=== PATIENT | male | born 1955 | race Caucasian/White ===

== ENCOUNTER 2018-10-25 11:44 | Inpatient (IN) | payer MEDICARE, MEDICAID ==
[~2018-10-25] VITALS: Ht 180.3 cm; Wt 107.0 kg
[~2018-10-25 11:44] MED LIST: AMLO10TA80 PO; BENA40TA9 PO; CALC0.5C10 PO; CLON0.2T PO; DILT240C52 PO; DOXA1TAB PO; FERR220S12 PO; FURO40TA5 PO; HYDR-4135 PO; SEVE0.8P3 PO; [UNRECOGNIZED DRUG - CODE] MC
[2018-10-25] MEDS ORDERED: FUROSEMIDE 40MG/4ML VIAL IV ONE (12:30)
[2018-10-25 13:00] LABS: BASOPHILS % 0.5 % (0.0-2.0); EOSINOPHILS % 3.1 % (0.0-5.0); HEMATOCRIT. 27.4 % (42.0-52.0); HEMOGLOBIN. 9.1 g/dL (14.0-18.0); LYMPHOCYTES % 8.9 % (20.0-50.0); MEAN CORPUSCULAR HEMOGLOBIN 30.8 pg (28.0-32.0); MEAN CORPUSCULAR VOLUME 92.5 fL (80.0-94.0); MEAN PLATELET VOLUME 9.1 fl (7.4-10.4); MONOCYTES % 4.1 % (2.0-8.0); NEUTROPHILS % 83.4 % (40.0-76.0); PLATELET 134 x1000/uL (130-400); RED BLOOD CELL COUNT 2.97 mill/uL (4.7-6.1); RED CELL DISTRIBUTION WIDTH 14.4 % (11.6-14.6)
[2018-10-25 13:09] LABS: CHLORIDE 117 mEq/L (98-107)
[2018-10-25 16:00] VITALS: BP 133/60
[2018-10-25 16:38] VITALS: BP 133/60
[2018-10-25] MEDS ORDERED: IPRATROPIUM/ALBUTEROL 0.5-3(2.5)MG/3ML NEB HHN PRN (17:30)
[2018-10-25] MEDS ORDERED: HYDRALAZINE 20MG/ML VIAL IV PRN (17:30)
[2018-10-25] MEDS ORDERED: ONDANSETRON HCL 4MG/2ML INJ IV PRN (17:30)
[2018-10-25] MEDS ORDERED: ACETAMINOPHEN 325MG TABLET PO PRN (17:30)
[2018-10-25 20:00] VITALS: BP 131/54
[2018-10-25] MEDS ORDERED: FERR325T6 MT (20:08)
[2018-10-25] MEDS ORDERED: SEVE800T8 PO (20:08)
[2018-10-25] MEDS ORDERED: DOXA1TAB2 MT (20:08)
[2018-10-25] MEDS ORDERED: AMLO-337 PO (20:08)
[2018-10-25] MEDS ORDERED: BENA40TA9 PO (20:08)
[2018-10-25] MEDS ORDERED: HYDR-4135 MT (20:08)
[2018-10-25] MEDS ORDERED: CALC0.5C10 PO (20:08)
[2018-10-25] MEDS ORDERED: FURO40TA5 MT (20:08)
[2018-10-25] MEDS ORDERED: [UNRECOGNIZED DRUG - CODE] MC (20:08)
[2018-10-25] MEDS ORDERED: SODI15OR PO (20:08)
[2018-10-25] MEDS ORDERED: CLON0.2T MT (20:08)
[2018-10-25] MEDS ORDERED: DILT-2 MT (20:08)
[2018-10-25] MEDS ORDERED: DOCU100T MT (20:08)
[2018-10-25] MEDS ORDERED: DOXA2TAB2 PO (20:08)
[2018-10-25] MEDS: DOCUSATE SODIUM 100MG CAPSULE PO SCH (21:58)
[2018-10-25] MEDS: HYDRALAZINE HCL 50MG TABLET PO SCH (21:58)
[2018-10-25] MEDS: DOXAZOSIN MESYLATE 2MG TABLET PO SCH (21:59)
[2018-10-26] VITALS (7 sets, daily range): BP systolic 121–160; BP diastolic 56–78
[2018-10-26] MEDS: HYDRALAZINE HCL 50MG TABLET PO SCH ×3 (05:26→20:56)
[2018-10-26 07:24] LABS: BASOPHILS % 1.5 % (0.0-2.0); EOSINOPHILS % 3.9 % (0.0-5.0); HEMATOCRIT. 25.3 % (42.0-52.0); HEMOGLOBIN. 8.4 g/dL (14.0-18.0); LYMPHOCYTES % 9.2 % (20.0-50.0); MEAN CORPUSCULAR HEMOGLOBIN 31.1 pg (28.0-32.0); MEAN CORPUSCULAR VOLUME 93.8 fL (80.0-94.0); MEAN PLATELET VOLUME 9.5 fl (7.4-10.4); MONOCYTES % 5.9 % (2.0-8.0); NEUTROPHILS % 79.5 % (40.0-76.0); PLATELET 113 x1000/uL (130-400); RED CELL DISTRIBUTION WIDTH 14.5 % (11.6-14.6)
[2018-10-26] MEDS: AMLODIPINE 10MG TABLET PO SCH ×2 (09:00→20:53)
[2018-10-26] MEDS: BENAZEPRIL 10MG TABLET PO SCH ×2 (09:00→20:53)
[2018-10-26] MEDS: DOXAZOSIN MESYLATE 2MG TABLET PO SCH ×2 (09:00→20:53)
[2018-10-26] MEDS: FUROSEMIDE 40MG TABLET PO SCH ×3 (10:17→18:28)
[2018-10-26] MEDS: FERROUS SULFATE 325MG TABLET PO SCH ×3 (10:17→18:28)
[2018-10-26] MEDS: DOCUSATE SODIUM 100MG CAPSULE PO SCH ×2 (10:17→20:52)
[2018-10-26 10:44] LABS: INR 1.1; PARTIAL THROMBOPLASTIN TIME 31.1 sec (23.4-31.0); PROTHROMBIN TIME 11.3 sec (9.1-11.1)
[2018-10-26] MEDS: IRON SUCROSE COMPLEX 100 MG/5 ML ML IV SCH (22:58)
[2018-10-26] MEDS ORDERED: EPOETIN ALFA 4000UNITS/ML VIAL SUBCUT NR (23:30)
[2018-10-27] VITALS: BP_SYST 145; BP_SYST 152; BP_DIAS 65; BP_DIAS 68
[2018-10-27] MEDS: EPOETIN ALFA 4000UNITS/ML VIAL SUBCUT SCH ×3 (00:08→22:39)
[2018-10-27 04:00] VITALS: BP 143/59
[2018-10-27] MEDS: HYDRALAZINE HCL 50MG TABLET PO SCH (05:13)
[2018-10-27 06:47] LABS: BASOPHILS % 1.3 % (0.0-2.0); EOSINOPHILS % 3.7 % (0.0-5.0); HEMATOCRIT. 26.4 % (42.0-52.0); HEMOGLOBIN. 8.8 g/dL (14.0-18.0); LYMPHOCYTES % 8.3 % (20.0-50.0); MEAN CORPUSCULAR HEMOGLOBIN 30.9 pg (28.0-32.0); MEAN CORPUSCULAR VOLUME 92.7 fL (80.0-94.0); MEAN PLATELET VOLUME 9.3 fl (7.4-10.4); MONOCYTES % 5.6 % (2.0-8.0); NEUTROPHILS % 81.1 % (40.0-76.0); PLATELET 116 x1000/uL (130-400); RED BLOOD CELL COUNT 2.85 mill/uL (4.7-6.1); RED CELL DISTRIBUTION WIDTH 14.1 % (11.6-14.6)
[2018-10-27 08:00] VITALS: BP 167/73
[2018-10-27] MEDS: DOXAZOSIN MESYLATE 2MG TABLET PO SCH ×2 (09:00→22:40)
[2018-10-27] MEDS: BENAZEPRIL 10MG TABLET PO SCH (10:02)
[2018-10-27] MEDS: DOCUSATE SODIUM 100MG CAPSULE PO SCH ×2 (10:06→22:44)
[2018-10-27 12:00] VITALS: BP 173/76
[2018-10-27] MEDS: DILTIAZEM HCL 60MG TABLET PO SCH ×3 (12:00→22:41)
[2018-10-27] MEDS: HYDRALAZINE HCL 100MG TABLET PO SCH ×2 (13:33→22:41)
[2018-10-27 20:00] VITALS: BP 174/77
[2018-10-27] MEDS: FUROSEMIDE 40MG TABLET PO SCH (22:41)
[2018-10-27] MEDS: IRON SUCROSE COMPLEX 100 MG/5 ML ML IV SCH (23:03)
[2018-10-28] VITALS (7 sets, daily range): BP systolic 101–193; BP diastolic 53–68
[2018-10-28] MEDS: DILTIAZEM HCL 60MG TABLET PO SCH ×3 (05:31→17:01)
[2018-10-28] MEDS: HYDRALAZINE HCL 100MG TABLET PO SCH ×3 (05:32→21:23)
[2018-10-28 06:24] LABS: BASOPHILS % 1.3 % (0.0-2.0); HEMATOCRIT. 25.7 % (42.0-52.0); HEMOGLOBIN. 8.6 g/dL (14.0-18.0); LYMPHOCYTES % 9.4 % (20.0-50.0); MEAN CORPUSCULAR HEMOGLOBIN 30.8 pg (28.0-32.0); MEAN PLATELET VOLUME 9.3 fl (7.4-10.4); MONOCYTES % 5.9 % (2.0-8.0); NEUTROPHILS % 79.4 % (40.0-76.0); PLATELET 108 x1000/uL (130-400); RED BLOOD CELL COUNT 2.79 mill/uL (4.7-6.1); RED CELL DISTRIBUTION WIDTH 14.4 % (11.6-14.6)
[2018-10-28] MEDS: FUROSEMIDE 40MG TABLET PO SCH ×2 (08:17→17:00)
[2018-10-28] MEDS: DOCUSATE SODIUM 100MG CAPSULE PO SCH ×2 (08:17→21:22)
[2018-10-28] MEDS: DOXAZOSIN MESYLATE 2MG TABLET PO SCH ×2 (08:18→21:23)
[2018-10-28] MEDS: BENAZEPRIL 10MG TABLET PO SCH (08:18)
[2018-10-28] MEDS: IRON SUCROSE COMPLEX 100 MG/5 ML ML IV SCH (23:36)
[2018-10-29] VITALS (19 sets, daily range): BP systolic 148–178; BP diastolic 53–80
[2018-10-29] MEDS: DILTIAZEM HCL 60MG TABLET PO SCH ×2 (00:41→05:44)
[2018-10-29] MEDS: HYDRALAZINE HCL 100MG TABLET PO SCH ×3 (05:44→22:02)
[2018-10-29 06:17] LABS: BASOPHILS % 1.3 % (0.0-2.0); HEMATOCRIT. 27.2 % (42.0-52.0); HEMOGLOBIN. 9.1 g/dL (14.0-18.0); LYMPHOCYTES % 8.1 % (20.0-50.0); MEAN CORPUSCULAR HEMOGLOBIN 30.8 pg (28.0-32.0); MEAN CORPUSCULAR VOLUME 92.4 fL (80.0-94.0); MEAN PLATELET VOLUME 9.3 fl (7.4-10.4); MONOCYTES % 5.9 % (2.0-8.0); NEUTROPHILS % 81.7 % (40.0-76.0); PLATELET 121 x1000/uL (130-400); RED BLOOD CELL COUNT 2.95 mill/uL (4.7-6.1); RED CELL DISTRIBUTION WIDTH 14.1 % (11.6-14.6)
[2018-10-29] MEDS ORDERED: CEFAZOLIN 1000MG PREMIX 50 ML IV SCH (07:30)
[2018-10-29] MEDS ORDERED: SODIUM BICARBONATE 4% (2.4MEQ) 5ML VIAL IV ONE (07:56)
[2018-10-29] MEDS ORDERED: LIDOCAINE HCL 1% 20ML VIAL (Pyxis) INJ ONE (07:56)
[2018-10-29] MEDS ORDERED: HEPARIN 1000 UNITS/ML 10ML ONE (07:57)
[2018-10-29] MEDS ORDERED: CEFAZOLIN 1000MG PREMIX 50 ML IV ONE (08:00)
[2018-10-29] MEDS ORDERED: FENTANYL CITRATE/PF 50MCG/ML 2ML VIAL ONE (08:00)
[2018-10-29] MEDS: DOXAZOSIN MESYLATE 2MG TABLET PO SCH ×2 (09:00→20:30)
[2018-10-29] MEDS ORDERED: FENTANYL CITRATE/PF 50MCG/ML 2ML VIAL IV ONE (09:00)
[2018-10-29] MEDS: FUROSEMIDE 40MG TABLET PO SCH ×2 (09:00→17:51)
[2018-10-29] MEDS: BENAZEPRIL 10MG TABLET PO SCH (09:00)
[2018-10-29] MEDS: DOCUSATE SODIUM 100MG CAPSULE PO SCH ×2 (09:45→20:30)
[2018-10-29] MEDS: DILTIAZEM HCL 90MG TABLET PO SCH ×2 (12:00→17:51)
[2018-10-29] MEDS: AZITHROMYCIN 500 MG TABLET PO SCH (17:51)
[2018-10-29] MEDS: SEVELAMER CARBONATE 800 MG TABLET PO SCH (17:52)
[2018-10-29] MEDS ORDERED: CEFTRIAXONE 1,000 MG in DEXTROSE 5% WATER 50 ML IV SCH (18:00)
[2018-10-29] MEDS ORDERED: EPOETIN ALFA 4000UNITS/ML VIAL SUBCUT PRN (21:00)
[2018-10-30] VITALS: BP 148/87
[2018-10-30] MEDS: CEFTRIAXONE 1 G PREMIX 50 ML IV SCH ×2 (00:42→18:00)
[2018-10-30] MEDS: DILTIAZEM HCL 90MG TABLET PO SCH ×2 (00:42→06:00)
[2018-10-30] MEDS: IRON SUCROSE COMPLEX 100 MG/5 ML ML IV SCH (00:43)
[2018-10-30 04:00] VITALS: BP 132/75
[2018-10-30] MEDS: HYDRALAZINE HCL 100MG TABLET PO SCH ×3 (06:00→21:27)
[2018-10-30 08:00] VITALS: BP 169/78
[2018-10-30 08:05] LABS: HEMATOCRIT. 24.9 % (42.0-52.0); HEMOGLOBIN. 8.2 g/dL (14.0-18.0); MEAN CORPUSCULAR HEMOGLOBIN 30.5 pg (28.0-32.0); MEAN CORPUSCULAR VOLUME 92.6 fL (80.0-94.0); MEAN PLATELET VOLUME 9.2 fl (7.4-10.4); PLATELET 100 x1000/uL (130-400); RED BLOOD CELL COUNT 2.69 mill/uL (4.7-6.1); RED CELL DISTRIBUTION WIDTH 14.4 % (11.6-14.6)
[2018-10-30] MEDS: AZITHROMYCIN 500 MG TABLET PO SCH (08:38)
[2018-10-30] MEDS: DOCUSATE SODIUM 100MG CAPSULE PO SCH ×2 (08:38→21:27)
[2018-10-30] MEDS: SEVELAMER CARBONATE 800 MG TABLET PO SCH ×3 (08:38→17:40)
[2018-10-30] MEDS: FUROSEMIDE 40MG TABLET PO SCH ×2 (08:38→17:00)
[2018-10-30] MEDS ORDERED: BENAZEPRIL 10MG TABLET PO SCH ×2 (09:00)
[2018-10-30] MEDS: DOXAZOSIN MESYLATE 2MG TABLET PO SCH ×2 (09:40→21:27)
[2018-10-30 12:00] VITALS: BP 146/80
[2018-10-30] MEDS: DILTIAZEM HCL 120MG CAPSULE CD 24HR PO SCH ×2 (12:29→21:27)
[2018-10-30] MEDS ORDERED: GELATIN SPONGE,ABSORBABLE 12-7MM SPONGE ONE (13:18)
[2018-10-30] MEDS ORDERED: LIDOCAINE HCL 1% 20ML VIAL (Pyxis) INJ ONE (13:19)
[2018-10-30] MEDS ORDERED: THROMBIN (BOVINE) 5000 UNITS/VIAL TOP ONE (13:19)
[2018-10-30] MEDS ORDERED: BACITRACIN 50,000 UNITS/VIAL ONE (13:20)
[2018-10-30] MEDS ORDERED: HEPARIN SODIUM 1,000 UNIT/1ML VIAL IV ONE (13:20)
[2018-10-30] MEDS ORDERED: BUPIVACAINE HCL/PF 0.5% (5MG/ML) 10ML ONE (13:20)
[2018-10-30] MEDS ORDERED: FENTANYL CITRATE/PF 50MCG/ML 2ML VIAL ONE (15:38)
[2018-10-30] MEDS ORDERED: MIDAZOLAM HCL 2 MG/2 ML VIAL ONE (15:38)
[2018-10-30] MEDS ORDERED: PROPOFOL 200MG/20ML VIAL IV ONE (15:38)
[2018-10-30] MEDS ORDERED: METOCLOPRAMIDE HCL 10MG/2ML VIAL ONE (16:06)
[2018-10-30] MEDS ORDERED: ONDANSETRON HCL 4MG/2ML INJ ONE (16:06)
[2018-10-30] MEDS ORDERED: HEPARIN 1000 UNITS/ML 10ML ONE (16:22)
[2018-10-30] MEDS ORDERED: GLYCOPYRROLATE 0.2 MG/ML 2ML VIAL ONE (16:36)
[2018-10-30] MEDS ORDERED: PROTAMINE SULFATE 10MG/ML VIAL 5ML IV ONE (16:45)
[2018-10-30] MEDS ORDERED: BACITRACIN 15GM TUBE TOP ONE (16:47)
[2018-10-30] MEDS ORDERED: FENTANYL CITRATE/PF 50MCG/ML 2ML VIAL IV PRN (17:30)
[2018-10-30 18:09] LABS: PLATELET ESTIMATE DECREASED
[2018-10-30 20:00] VITALS: BP 167/87
[2018-10-30] MEDS: BENAZEPRIL 10MG TABLET PO SCH (21:27)
[2018-10-31] VITALS: BP 132/75
[2018-10-31] MEDS: IRON SUCROSE COMPLEX 100 MG/5 ML ML IV SCH (00:38)
[2018-10-31 05:51] VITALS: BP 160/85
[2018-10-31] MEDS: HYDRALAZINE HCL 100MG TABLET PO SCH ×3 (05:56→23:30)
[2018-10-31 07:28] LABS: HEMATOCRIT. 26.2 % (42.0-52.0); HEMOGLOBIN. 8.6 g/dL (14.0-18.0); MEAN CORPUSCULAR HEMOGLOBIN 30.4 pg (28.0-32.0); MEAN CORPUSCULAR VOLUME 93.2 fL (80.0-94.0); MEAN PLATELET VOLUME 9.4 fl (7.4-10.4); PLATELET 125 x1000/uL (130-400); RED BLOOD CELL COUNT 2.82 mill/uL (4.7-6.1); RED CELL DISTRIBUTION WIDTH 13.9 % (11.6-14.6)
[2018-10-31] MEDS: FERROUS SULFATE 325MG TABLET PO SCH ×2 (07:36→17:06)
[2018-10-31] MEDS: SEVELAMER CARBONATE 800 MG TABLET PO SCH ×3 (07:36→17:06)
[2018-10-31 08:00] VITALS: BP 154/81
[2018-10-31] MEDS: DILTIAZEM HCL 120MG CAPSULE CD 24HR PO SCH ×2 (08:21→21:27)
[2018-10-31] MEDS: BENAZEPRIL 10MG TABLET PO SCH ×2 (08:21→21:27)
[2018-10-31] MEDS: DOCUSATE SODIUM 100MG CAPSULE PO SCH ×2 (08:21→21:27)
[2018-10-31] MEDS: FUROSEMIDE 40MG TABLET PO SCH ×2 (08:21→17:06)
[2018-10-31] MEDS: AZITHROMYCIN 500 MG TABLET PO SCH (08:21)
[2018-10-31] MEDS: DOXAZOSIN MESYLATE 2MG TABLET PO SCH ×2 (08:21→21:27)
[2018-10-31 11:19] LABS: PLATELET ESTIMATE SLIGHTLY DECREASED
[2018-10-31 12:00] VITALS: BP 165/94
[2018-10-31 16:00] VITALS: BP 185/83
[2018-10-31] MEDS ORDERED: FURO40TA5 PO (16:58)
[2018-10-31] MEDS ORDERED: AZIT500T5 PO (16:58)
[2018-10-31] MEDS ORDERED: DILT120C88 PO (16:58)
[2018-10-31] MEDS ORDERED: HYDR100T26 PO (16:58)
[2018-10-31] MEDS ORDERED: LOT10 PO (16:58)
[2018-10-31] MEDS: CEFTRIAXONE 1 G PREMIX 50 ML IV SCH (17:06)
[2018-10-31 20:00] VITALS: BP 178/82
[2018-10-31 20:19] LABS: HEPATITIS B SURFACE AB < 3.1 mIU/mL
[2018-11-01] VITALS: BP 147/73
[2018-11-01 04:00] VITALS: BP 167/61
[2018-11-01 05:04] VITALS: BP 131/83
[2018-11-01] MEDS: HYDRALAZINE HCL 100MG TABLET PO SCH ×2 (06:28→13:23)
[2018-11-01 08:00] VITALS: BP 157/74
[2018-11-01] MEDS: SEVELAMER CARBONATE 800 MG TABLET PO SCH ×2 (08:38→13:23)
[2018-11-01] MEDS: BENAZEPRIL 10MG TABLET PO SCH (08:38)
[2018-11-01] MEDS: FERROUS SULFATE 325MG TABLET PO SCH (08:38)
[2018-11-01] MEDS: FUROSEMIDE 40MG TABLET PO SCH (08:38)
[2018-11-01] MEDS: DOCUSATE SODIUM 100MG CAPSULE PO SCH (08:38)
[2018-11-01] MEDS: DILTIAZEM HCL 120MG CAPSULE CD 24HR PO SCH (08:39)
[2018-11-01] MEDS: AZITHROMYCIN 500 MG TABLET PO SCH (08:39)
[2018-11-01] MEDS ORDERED: DOXAZOSIN MESYLATE 2MG TABLET PO SCH (09:00)
[2018-11-01] MEDS ORDERED: HEPATITIS B VIRUS VACCINE-PF 10 MCG/0.5 VIAL IM ONE (09:00)
[2018-11-01 12:00] VITALS: BP 131/83
[2018-11-01] MEDS ORDERED: DIPHENHYDRAMINE 25MG CAPSULE PO PRN (12:00)
== END 2018-11-01 13:55 | disposition home or self-care (01) | DRG 673 ==
LOC: ER 11:44 → 8WST 13:55 → EDBEDREQ 13:59 → EDBEDREQTM 13:59 → ENRESERV 14:35
PROVIDERS: ADMIT Internal Medicine; ATTEND Internal Medicine
PROC: 5A1D70Z Performance of Urinary Filtration, Intermittent, Less than 6 Hours Per Day (ICD-10-PCS; 2018-10-26)
PROC: 02HV33Z Insertion of Infusion Device into Superior Vena Cava, Percutaneous Approach (ICD-10-PCS; 2018-10-26)
PROC: B5181ZA Fluoroscopy of Superior Vena Cava using Low Osmolar Contrast, Guidance (ICD-10-PCS; 2018-10-26)
PROC: B548ZZA Ultrasonography of Superior Vena Cava, Guidance (ICD-10-PCS; 2018-10-26)
PROC: 5A1D70Z Performance of Urinary Filtration, Intermittent, Less than 6 Hours Per Day (ICD-10-PCS; 2018-10-27)
PROC: 5A1D70Z Performance of Urinary Filtration, Intermittent, Less than 6 Hours Per Day (ICD-10-PCS; 2018-10-29)
PROC: 0JH63XZ Insertion of Tunneled Vascular Access Device into Chest Subcutaneous Tissue and Fascia, Percutaneous Approach (ICD-10-PCS; 2018-10-29)
PROC: 02H633Z Insertion of Infusion Device into Right Atrium, Percutaneous Approach (ICD-10-PCS; 2018-10-29)
PROC: B2141ZZ Fluoroscopy of Right Heart using Low Osmolar Contrast (ICD-10-PCS; 2018-10-29)
PROC: 02PYX3Z Removal of Infusion Device from Great Vessel, External Approach (ICD-10-PCS; 2018-10-29)
PROC: 03180ZD Bypass Left Brachial Artery to Upper Arm Vein, Open Approach (ICD-10-PCS; principal; 2018-10-30)
PROC: 5A1D70Z Performance of Urinary Filtration, Intermittent, Less than 6 Hours Per Day (ICD-10-PCS; 2018-10-31)
DX: N17.9 Acute kidney failure, unspecified (principal); J96.00 Acute respiratory failure, unspecified whether with hypoxia or hypercapnia; J18.9 Pneumonia, unspecified organism; I13.2 Hypertensive heart and chronic kidney disease with heart failure and with stage 5 chronic kidney disease, or end stage renal disease; J90 Pleural effusion, not elsewhere classified; I31.3 Pericardial effusion (noninflammatory); E87.0 Hyperosmolality and hypernatremia; E44.0 Moderate protein-calorie malnutrition; N18.6 End stage renal disease; I27.20 Pulmonary hypertension, unspecified; E87.8 Other disorders of electrolyte and fluid balance, not elsewhere classified; I50.9 Heart failure, unspecified; E66.9 Obesity, unspecified; D63.8 Anemia in other chronic diseases classified elsewhere; I07.1 Rheumatic tricuspid insufficiency; Z99.2 Dependence on renal dialysis; Z68.32 Body mass index [BMI] 32.0-32.9, adult; Z79.899 Other long term (current) drug therapy
CPT/HCPCS: 36415; 36558; 36569; 36589; 71045; 76937; 77001; 80048; 83036; 83605; 83721; 83880; 84145; 84484; 86705; 86706; 86850; 86900; 90743; 93005; 93306; 93970; 96374; 99285; C1750; C1752; J0360; J0690; J0696; J0885; J1644; J1940; J2250; J2405; J2704; J2720; J2765; J3010; J3490; J7050; J7060

== ENCOUNTER 2019-03-24 12:55 | Emergency (ER) | payer MEDICARE, MEDICAID ==
[~2019-03-24] VITALS: Ht 180.3 cm; Wt 95.0 kg
[~2019-03-24 12:55] MED LIST changes: +AMLO-337 PO; -AMLO10TA80 PO; +AZIT500T5 PO; -BENA40TA9 PO; -CLON0.2T PO; +DILT120C88 PO; -DILT240C52 PO; +DOCU100T MT; +DOXA2TAB2 PO; -FERR220S12 PO; +FERR325T6 MT; -HYDR-4135 PO; +HYDR100T26 PO; +LOT10 PO; +[UNRECOGNIZED DRUG - CODE] MC; -[UNRECOGNIZED DRUG - CODE] MC
[2019-03-24 15:42] VITALS: BP 138/56
== END 2019-03-24 16:10 | disposition home or self-care (01) ==
LOC: ER 12:55
DX: T82.49XA Other complication of vascular dialysis catheter, initial encounter (principal); I13.2 Hypertensive heart and chronic kidney disease with heart failure and with stage 5 chronic kidney disease, or end stage renal disease; N18.6 End stage renal disease; I50.9 Heart failure, unspecified; Z99.2 Dependence on renal dialysis; D64.9 Anemia, unspecified; Z79.899 Other long term (current) drug therapy; Y92.89 Other specified places as the place of occurrence of the external cause
CPT/HCPCS: 99281

== ENCOUNTER 2019-03-25 11:33 | Emergency (ER) | payer MEDICARE, MEDICAID ==
[~2019-03-25] VITALS: Ht 185.4 cm; Wt 87.0 kg
[2019-03-25 14:14] LABS: EOSINOPHILS % 3.1 % (0.0-5.0); HEMATOCRIT. 28.4 % (42.0-52.0); HEMOGLOBIN. 9.7 g/dL (14.0-18.0); MEAN CORPUSCULAR HEMOGLOBIN 30.4 pg (28.0-32.0); MEAN PLATELET VOLUME 8.5 fl (7.4-10.4); MONOCYTES % 6.7 % (2.0-8.0); NEUTROPHILS % 78.2 % (40.0-76.0); PLATELET 163 x1000/uL (130-400); RED BLOOD CELL COUNT 3.19 mill/uL (4.7-6.1); RED CELL DISTRIBUTION WIDTH 15.5 % (11.6-14.6)
[2019-03-25 14:22] LABS: INR 1.1; PARTIAL THROMBOPLASTIN TIME 28.2 sec (23.4-31.0)
[2019-03-25 15:30] VITALS: BP 146/91
== END 2019-03-25 15:41 | disposition home or self-care (01) ==
LOC: ER 11:33
DX: Z49.01 Encounter for fitting and adjustment of extracorporeal dialysis catheter (principal); N18.6 End stage renal disease
CPT/HCPCS: 36415; 36589; 80048; 99284

== ENCOUNTER 2024-04-06 09:45 | Emergency (ER) | payer MEDICARE, MEDICAID ==
[~2024-04-06] VITALS: Ht 177.8 cm; Wt 99.8 kg
[~2024-04-06 09:45] MED LIST changes: +APIX5TAB PO; -AZIT500T5 PO; +CALC0.253 PO; -CALC0.5C10 PO; +CALC667C PO; -DILT120C88 PO; -DOXA1TAB PO; -DOXA2TAB2 PO; -LOT10 PO; -SEVE0.8P3 PO; +SEVE800T8 PO; +SODI10PO PO; -[UNRECOGNIZED DRUG - CODE] MC
[2024-04-06 09:56] VITALS: TEMP 98.2; O2SAT 99
[2024-04-06 10:40] LABS: BASOPHILS % 0.9 % (0.0-2.0); EOSINOPHILS % 3.5 % (0.0-5.0); HEMATOCRIT. 40.2 % (42.0-52.0); HEMOGLOBIN. 13.5 g/dL (14.0-18.0); LYMPHOCYTES % 15.3 % (20.0-50.0); MEAN CORPUSCULAR HGB CONC 33.5 g/dL (31.0-37.0); MEAN CORPUSCULAR VOLUME 95.6 fL (80.0-94.0); MEAN PLATELET VOLUME 8.7 fl (7.4-10.4); MONOCYTES % 7.3 % (2.0-8.0); PLATELET 149 x1000/uL (130-400); RED BLOOD CELL COUNT 4.21 mill/uL (4.7-6.1); RED CELL DISTRIBUTION WIDTH 14.9 % (11.6-14.6); WHITE BLOOD COUNT 5.9 x1000/uL (4.5-11.0)
[2024-04-06 10:51] LABS: PROTHROMBIN TIME 10.9 sec (9.6-11.0)
[2024-04-06 11:02] LABS: POTASSIUM 5.5 mEq/L (3.5-5.1)
[2024-04-06 11:03] LABS: CALCIUM 9.1 mg/dL (8.7-10.4)
[2024-04-06 11:22] LABS: CREATININE 11.8 mg/dL (0.6-1.3)
[2024-04-06] MEDS ORDERED: LIDOCAINE HCL 1% 10 MG/ML 10ML VIAL ONE (12:37)
[2024-04-06 14:41] VITALS: BP 142/86; PULSE 64; RESP 16
== END 2024-04-06 14:43 | disposition home or self-care (01) ==
LOC: ER 09:45
DX: Z45.2 Encounter for adjustment and management of vascular access device (principal); Z99.2 Dependence on renal dialysis; Z79.899 Other long term (current) drug therapy; Z20.822 Contact with and (suspected) exposure to COVID-19
CPT/HCPCS: 36589; 99284; 71045; 87426; 80048; 85025; 85610; 36415; J3490